=== PATIENT | female | born 1960 | race Hispanic/Latino ===

== ENCOUNTER 2024-12-17 08:07 | Day surgery (SDC) | payer BC ==
[2024-12-17] MEDS ORDERED: Lactated Ringers 1,000 ML IV ONE (08:14)
[2024-12-17 08:28] VITALS: RESP 16
[2024-12-17] MEDS: Lactated Ringers 1,000 ML IV SCH (08:38)
[2024-12-17] MEDS: TETRACAINE 0.5% STERI-UNIT SOL OP ONE ×2 (08:38→09:05)
[2024-12-17] MEDS: Ak-Dilate OPHTHALMIC*** 1.065 ML, Cyclogyl 1% OPHTH SOL 1.065 ML, GATIFLOXACIN 0.5% OPH... OP ONE (08:39)
[2024-12-17] MEDS ORDERED: DEXMEDETOMIDINE 80 MCG/20ML-NS IV NR (10:15)
[2024-12-17] MEDS ORDERED: VIGAMOX/BSS 0.15% SYR IO NR (10:15)
[2024-12-17] MEDS ORDERED: Epinephrine Preservative Free 1 MG/ML INTRAOP NR (10:15)
[2024-12-17] MEDS ORDERED: BETADINE 5% OPHTHALMIC 30 ML OP NR (10:15)
[2024-12-17] MEDS ORDERED: TRIAMCINOLONE 15 MG/ML INJ INTRAOP NR (10:15)
[2024-12-17] MEDS ORDERED: Zofran 4 MG/2 ML VIAL IV PRN (10:30)
[2024-12-17] MEDS ORDERED: propofoL IV ONE ×2 (11:31→11:58)
[2024-12-17 12:19] VITALS: PULSE 85
[2024-12-17] MEDS: ACETAZOLAMIDE 250 MG TABLET PO ONE (12:23)
[2024-12-17 12:26] VITALS: BP 116/80; TEMP 98.2; O2SAT 99
== END 2024-12-17 12:42 | disposition home or self-care (01) ==
LOC: SDC 08:07
PROVIDERS: ATTEND Ophthalmology
DX: H25.811 Combined forms of age-related cataract, right eye (principal)
CPT/HCPCS: C1780; J0171; J2704; A9270-GY